=== PATIENT | female | born 1980 | race Caucasian/White ===

== ENCOUNTER 2017-03-03 02:15 | Emergency (ER) | payer MEDICAID ==
[~2017-03-03] VITALS: Ht 154.9 cm; Wt 108.0 kg
[2017-03-03 02:24] VITALS: BP 131/80
--- NOTE | 2017-03-03 02:35 | NUR ---
TO ER BED 7
--- NOTE | 2017-03-03 02:37 | NUR ---
Patient being evaluated by physician at bedside.
[2017-03-03] MEDS ORDERED: NITROGLYCERIN 0.4 MG TAB SL ONE (02:45)
[2017-03-03] MEDS ORDERED: ASPIRIN 325 MG TAB PO ONE (02:45)
[2017-03-03 02:59] LABS: BASOPHILS # (AUTO) 0.4 K/uL (0.00-0.22); BASOPHILS % (AUTO) 3.5 % (0.0-2.0); EOSINOPHILS # (AUTO) 0.4 K/uL (0-0.4); EOSINOPHILS % (AUTO) 3.5 % (0.0-4.0); HEMATOCRIT 42.4 % (36-48); HEMOGLOBIN 13.8 g/dL (12.0-16.0); LYMPHOCYTES # (AUTO) 3.3 K/uL (2.5-16.5); LYMPHOCYTES % (AUTO) 29.7 % (20.5-51.1); MEAN CORPUSCULAR HEMOGLOBIN 28 pg (27-31); MEAN CORPUSCULAR HGB CONC 33 g/dL (33-37); MEAN CORPUSCULAR VOLUME 87 fL (80-94); MONOCYTES # (AUTO) 0.5 K/uL (0.8-1.0); MONOCYTES % (AUTO) 4.1 % (1.7-9.3); NEUTROPHILS # (AUTO) 6.5 K/uL (1.8-7.7); NEUTROPHILS % (AUTO) 59.2 % (42.2-75.2); PLATELET COUNT (AUTO) 251 K/uL (140-450); RED BLOOD CELL COUNT(AUTO) 4.88 MIL/uL (4.20-5.40); RED CELL DISTRIBUTION WIDTH 14.2 % (11.6-13.7); WHITE BLOOD COUNT (AUTO) 11.1 K/uL (4.8-10.8)
[2017-03-03 03:10] LABS: ANION GAP 12.8 (8-16); CARBON DIOXIDE 25.3 mmol/L (21-32); CREATININE 0.6 mg/dL (0.6-1.3); POTASSIUM 4.1 mmol/L (3.5-5.1)
--- NOTE | 2017-03-03 03:11 | NUR ---
36 Y/O BIB W/C/O SOB, AND CHEST PAIN WITH LEFT SIDE NECK PAIN, STARTED AT 2300HOURS. VSS, ON CARDIAC ,ONITOR, SINUS RHYTHM. ER MD MADE AWARE.
[2017-03-03 03:13] LABS: APPEARANCE,URINE CLOUDY (CLEAR); BILIRUBIN,URINE NEGATIVE (NEGATIVE); BLOOD, URINE TRACE-I (NEGATIVE); COLOR,URINE YELLOW (YELLOW); LEUKOCYTE ESTERASE ,URINE 1+ (NEGATIVE); NITRITE, URINE NEGATIVE (NEGATIVE); PH,URINE 5.5 (5.0-9.0); UGLUCOSE NEGATIVE (NEGATIVE)
[2017-03-03 03:16] LABS: ALBUMIN 3.7 g/dL (3.4-5.0); TOTAL BILIRUBIN 0.4 mg/dL (0.0-1.0)
[2017-03-03 03:19] LABS: D-DIMER < 100 ng/ml (0-400)
[2017-03-03 03:27] LABS: RBC,URINE 0-5 (RARE) /HPF (0-5)
[2017-03-03] MEDS ORDERED: ACETAMINOPHEN 325 MG TAB PO ONE (04:50)
--- NOTE | 2017-03-03 04:55 | NUR ---
PT RESTING IN BED, VSS, AWATING FOR SECOND TROPONIN DRAW AT 0600 AM. NO S/S OF DISTRESS NOTED AT THE MOMENT.
--- NOTE | 2017-03-03 06:05 | NUR ---
LAB DRAWING SECOND TROPONIN AT BEDSIDE.
--- NOTE | 2017-03-03 06:18 | NUR ---
SECOND EKG DONE AT BEDSIDE. SINUS CORI, ER MADE AWARED.
[2017-03-03 06:41] VITALS: BP 97/63
--- NOTE | 2017-03-03 06:41 | NUR ---
Patient discharged with v/s stable. Written and verbal after care instructions given and explained. Patient verbalized understanding. Ambulatory with steady gait. All questions addressed prior to discharge. Advised to follow up with PMD.
== END 2017-03-03 06:41 | disposition home or self-care (01) ==
LOC: MED 02:15
DX: R07.9 Chest pain, unspecified (principal); E11.9 Type 2 diabetes mellitus without complications; I10 Essential (primary) hypertension
CPT/HCPCS: 36415; 71010; 80053; 81001; 81025; 83880; 84484; 85025; 85379; 85610; 85730; 87086; 93005; 99285

== ENCOUNTER 2017-06-05 15:40 | Emergency (ER) | payer MEDICAID ==
[~2017-06-05] VITALS: Ht 152.4 cm; Wt 106.6 kg
[2017-06-05 15:42] VITALS: BP 135/79
--- NOTE | 2017-06-05 15:54 | NUR ---
Patient to bed 07.
--- NOTE | 2017-06-05 17:04 | NUR ---
Patient being evaluated by Dr. Guthrie at bedside.
[2017-06-05] MEDS ORDERED: DICYCLOMINE HCL LIQUID 20 MG, ALUMINUM HYD/MAG/SIMETHICONE 30 ML, LIDOCAINE VISCOUS 2% ... PO ONE ×3 (17:05)
[2017-06-05 17:22] VITALS: BP 102/54
--- NOTE | 2017-06-05 17:22 | NUR ---
Patient discharged with v/s stable. Written and verbal after care instructions given and explained. Patient alert, oriented and verbalized understanding of instructions. Ambulatory with steady gait. All questions addressed prior to discharge. ID band removed. Patient advised to follow up with PMD. Rx of Zofran 8mg, Cipro 500mg, and Imodium A-D 2mg given. Patient educated on indication of medication including possible reaction and side effects. Opportunity to ask questions provided and answered.
== END 2017-06-05 17:22 | disposition home or self-care (01) ==
LOC: MED 15:40
DX: N39.0 Urinary tract infection, site not specified (principal); R10.13 Epigastric pain; E11.9 Type 2 diabetes mellitus without complications; I10 Essential (primary) hypertension
CPT/HCPCS: 81002; 81025; 99283

== ENCOUNTER 2018-05-03 23:40 | Emergency (ER) | payer MEDICAID ==
[~2018-05-03] VITALS: Ht 157.5 cm; Wt 112.5 kg
[2018-05-03 23:52] VITALS: BP 119/86
[2018-05-03 23:55] VITALS: BP 119/86
== END 2018-05-04 00:15 | disposition left against medical advice (07) ==
LOC: MED 23:40
DX: R06.00 Dyspnea, unspecified (principal); Z53.21 Procedure and treatment not carried out due to patient leaving prior to being seen by health care provider

== ENCOUNTER 2018-08-02 00:40 | Emergency (ER) | payer MEDICAID ==
[~2018-08-02] VITALS: Ht 149.9 cm; Wt 136.1 kg
--- NOTE | 2018-08-02 00:47 | NUR ---
pt ambulated to triage accompanied by family.
--- NOTE | 2018-08-02 00:50 | NUR ---
Pt ambulated to bed 4.
--- NOTE | 2018-08-02 00:54 | NUR ---
EKG PERFORMED AT BEDSIDE.
[2018-08-02] MEDS ORDERED: ASPIRIN 81 MG TAB.CHEW PO ONE (01:00)
[2018-08-02] MEDS ORDERED: DICYCLOMINE HCL LIQUID 20 MG, ALUMINUM HYD/MAG/SIMETHICONE 30 ML, LIDOCAINE VISCOUS 2% ... PO ONE ×3 (01:00)
--- NOTE | 2018-08-02 01:00 | NUR ---
PT IS A 38 Y/O FEMALE WHO PRESENTS TO THE ED C/O CHEST PAIN. PT STATES THAT IT IS A PRESSURE TYPE PAIN THAT GOES UP HER BODY. PT REPORTS 7/10 ACHING CHEST PAIN THAT DOES NOT RADIATE, ALSO C/O BODY PAIN AND HEADACHE. PT DENIES COUGH, REPORTS SOB/DYSPNEA, N/V/D. PT AWAKE AND ALERT, RR EVEN/UNLABORED. PT REPOSITIONED FOR COMFORT, BED IN LOWEST POSITION. ER MD DR. PADILLA NOTIFIED. WILL CONTINUE TO MONITOR.
[2018-08-02 01:18] LABS: BASOPHILS # (AUTO) 0.2 K/uL (0.00-0.22); BASOPHILS % (AUTO) 1.2 % (0.0-2.0); EOSINOPHILS # (AUTO) 0.3 K/uL (0-0.4); EOSINOPHILS % (AUTO) 2.5 % (0.0-4.0); LYMPHOCYTES # (AUTO) 2.4 K/uL (2.5-16.5); LYMPHOCYTES % (AUTO) 18.2 % (20.5-51.1); MEAN CORPUSCULAR HEMOGLOBIN 29 pg (27-31); MEAN CORPUSCULAR HGB CONC 32 g/dL (33-37); MEAN CORPUSCULAR VOLUME 88.3 fL (80-94); MONOCYTES # (AUTO) 0.7 K/uL (0.8-1.0); MONOCYTES % (AUTO) 5.1 % (1.7-9.3); NEUTROPHILS # (AUTO) 9.6 K/uL (1.8-7.7); PLATELET COUNT (AUTO) 246 K/uL (140-450); RED BLOOD CELL COUNT(AUTO) 4.87 MIL/uL (4.20-5.40); RED CELL DISTRIBUTION WIDTH 14.6 % (11.6-13.7); WHITE BLOOD COUNT (AUTO) 13.1 K/uL (4.8-10.8)
[2018-08-02] MEDS ORDERED: ASPIRIN 81 MG TAB.CHEW ONE (01:18)
[2018-08-02 01:24] LABS: ANION GAP 9.4 (8-16); CARBON DIOXIDE 30.2 mmol/L (21-32); CREATININE 0.8 mg/dL (0.6-1.3); POTASSIUM 3.6 mmol/L (3.5-5.1)
[2018-08-02 01:30] LABS: ALBUMIN 3.5 g/dL (3.4-5.0); TOTAL BILIRUBIN 0.3 mg/dL (0.0-1.0)
[2018-08-02 01:34] LABS: APPEARANCE,URINE CLEAR (CLEAR); BILIRUBIN,URINE NEGATIVE (NEGATIVE); BLOOD, URINE NEGATIVE (NEGATIVE); COLOR,URINE YELLOW (YELLOW); LEUKOCYTE ESTERASE ,URINE NEGATIVE (NEGATIVE); NITRITE, URINE NEGATIVE (NEGATIVE); UGLUCOSE NEGATIVE (NEGATIVE)
[2018-08-02] MEDS ORDERED: MORPHINE SULFATE 4 MG/ML SYR IM ONE (01:40)
[2018-08-02 02:27] VITALS: BP 135/77
== END 2018-08-02 02:27 | disposition home or self-care (01) ==
LOC: MED 00:40
DX: R07.89 Other chest pain (principal); R51 Headache; E11.9 Type 2 diabetes mellitus without complications; I10 Essential (primary) hypertension; E78.00 Pure hypercholesterolemia, unspecified; Z98.51 Tubal ligation status
CPT/HCPCS: 36415; 71045; 80053; 81003; 81025; 82948; 84484; 85025; 93005; 96372; 99284; J2270; Q0092

== ENCOUNTER 2019-01-15 02:51 | Emergency (ER) | payer MEDICAID ==
[~2019-01-15] VITALS: Ht 157.5 cm; Wt 121.8 kg
[2019-01-15 02:55] VITALS: BP 143/85
--- NOTE | 2019-01-15 03:00 | NUR ---
38/F CC: GENERALIZED BODY RASHES. DENIES HX DENIES RX. NO NEW FOODS OR SOAPS IMPLEMENTED. NO SIGNS OF ACUTE DISTRESS AT THIS TIME. FOLLOWS COMMANDS ABLE TO VERBALIZE NEEDS. BED IN LOWEST POSITION. WILL CONTINUE TO MONITOR
--- NOTE | 2019-01-15 03:08 | NUR ---
DR. GONZALEZ AT BEDSIDE AT THIS TIME.
[2019-01-15] MEDS ORDERED: diphenhydrAMINE 50 MG/ML VIAL IM ONE (03:10)
[2019-01-15] MEDS ORDERED: methylPREDNISolone SS 125 MG/2 ML VIAL IM ONE (03:10)
[2019-01-15 03:31] VITALS: BP 143/85
--- NOTE | 2019-01-15 03:32 | NUR ---
Patient discharged with v/s stable. Written and verbal after care instructions given and explained. Patient alert, oriented and verbalized understanding of instructions. Ambulatory with steady gait. All questions addressed prior to discharge. ID band removed. Patient advised to follow up with PMD. Rx of BENADRYL 25MG, PREDNISONE 50MG given. Patient educated on indication of medication including possible reaction and side effects. Opportunity to ask questions provided and answered.
== END 2019-01-15 03:32 | disposition home or self-care (01) ==
LOC: MED 02:51
DX: L23.9 Allergic contact dermatitis, unspecified cause (principal); I10 Essential (primary) hypertension; E11.9 Type 2 diabetes mellitus without complications
CPT/HCPCS: 96372; 99283; J1200; J2930

== ENCOUNTER 2019-01-17 01:42 | Emergency (ER) | payer MEDICAID ==
[~2019-01-17] VITALS: Ht 154.9 cm; Wt 131.5 kg
[2019-01-17 01:48] VITALS: BP 132/89
--- NOTE | 2019-01-17 02:13 | NUR ---
PT AMBULATED TO BED 5
--- NOTE | 2019-01-17 02:40 | NUR ---
PT CAME TO ER C/O OF RASH ALL OVER BODY. PT CAME TO ER 01/15/19 AND RECEIVED RX FOR PREDNISONE 10MG TAB AND BANOPHEN 25 MG CAPSULE. PER PT, MEDICATION PROVIDES A LITTLE BIT OF RELEIF, BUT THEN THE ITCHING COMES BACK. MED HX: DM, HIGH CHOLESTEROL, ARTHRITIS, AND HTN. SAFETY MEASURES IN PLACE. WAITING FOR ERMD TO EVALUTATE PT.
[2019-01-17 03:35] VITALS: BP 132/89
--- NOTE | 2019-01-17 03:38 | NUR ---
Patient discharged with v/s stable. Written and verbal after care instructions given and explained regarding rash. Patient alert, oriented and verbalized understanding of instructions. Ambulatory with steady gait. All questions addressed prior to discharge. ID band removed. Rx of PREDNISONE AND BENADRYL WAS given. Patient educated on indication of medication including possible reaction and side effects. Opportunity to ask questions provided and answered.
== END 2019-01-17 03:35 | disposition home or self-care (01) ==
LOC: MED 01:42
DX: R21 Rash and other nonspecific skin eruption (principal); E11.9 Type 2 diabetes mellitus without complications; I10 Essential (primary) hypertension; Z98.890 Other specified postprocedural states
CPT/HCPCS: 99283

== ENCOUNTER 2023-12-20 12:17 | Inpatient (IN) | payer OTHER ==
[~2023-12-20] VITALS: Ht 154.9 cm; Wt 90.7 kg
[2023-12-20 12:25] VITALS: BP 102/72; PULSE 131; RESP 19; TEMP 98.2; O2SAT 96
[2023-12-20] MEDS: NACL 0.9% 1,000 ML IV ONE ×2 (13:06→14:30)
[2023-12-20 13:07] LABS: BASOPHILS # (AUTO) 0.1 K/uL (0.00-0.22); BASOPHILS % (AUTO) 0.8 % (0.0-2.0); EOSINOPHILS # (AUTO) 0.2 K/uL (0-0.4); HEMATOCRIT 39.2 % (36-48); HEMOGLOBIN 12.6 g/dL (12.0-16.0); LYMPHOCYTES # (AUTO) 1.9 K/uL (2.5-16.5); LYMPHOCYTES % (AUTO) 21.2 % (20.5-51.1); MEAN CORPUSCULAR HEMOGLOBIN 29 pg (27-31); MEAN CORPUSCULAR HGB CONC 32 g/dL (33-37); MEAN CORPUSCULAR VOLUME 89.5 fL (80-94); MONOCYTES # (AUTO) 0.8 K/uL (0.8-1.0); MONOCYTES % (AUTO) 8.5 % (1.7-9.3); NEUTROPHILS # (AUTO) 6.1 K/uL (1.8-7.7); NEUTROPHILS % (AUTO) 67.5 % (42.2-75.2); PLATELET COUNT (AUTO) 197 K/uL (140-450); RED BLOOD CELL COUNT(AUTO) 4.38 MIL/uL (4.20-5.40); RED CELL DISTRIBUTION WIDTH 17.5 % (11.6-13.7)
[2023-12-20] MEDS: MORPHINE SULFATE 4 MG/ML SYR IVP ONE ×2 (13:21→16:51)
[2023-12-20 13:33] LABS: INR 0.94 (0.8-1.2); PARTIAL THROMBOPLASTIN TIME 26.5 secs (22-35.6); PROTHROMBIN TIME 9.9 secs (10.8-13.4)
[2023-12-20 14:15] LABS: ALBUMIN 2.6 g/dL (3.4-5.0); ANION GAP 17.3 (8-16); CARBON DIOXIDE 21.7 mmol/L (21-32); CREATININE 0.8 mg/dL (0.6-1.3); TOTAL BILIRUBIN 0.5 mg/dL (0.0-1.0)
[2023-12-20] MEDS: INSULIN REGULAR, HUMAN 100 UNIT/ML VIAL SUBQ ONE (14:34)
[2023-12-20] MEDS ORDERED: KCL 20 MEQ IN 100 mL PREMIX 200 ML IV PRN (17:45)
[2023-12-20] MEDS ORDERED: ACETAMINOPHEN 325 MG TAB PO PRN (17:45)
[2023-12-20] MEDS ORDERED: POTASSIUM CHLORIDE 10 MEQ TABER PO PRN (17:45)
[2023-12-20] MEDS ORDERED: MAG SULF 2000 MG/WATER PREMIX 50 ML IV PRN (17:45)
[2023-12-20] MEDS ORDERED: hePARIN / DEXT 5% PREMIX 250 ML IV SCH (17:50)
[2023-12-20] MEDS ORDERED: HEPARIN PER PHARMACY MC PRN (17:50)
[2023-12-20] MEDS ORDERED: LACT1CAP92 PO (20:08)
[2023-12-20] MEDS ORDERED: ACET-8211 PO (20:08)
[2023-12-20] MEDS ORDERED: ALLO100T21 PO (20:08)
[2023-12-20] MEDS ORDERED: DOCU-299 PO (20:10)
[2023-12-20] MEDS ORDERED: [UNRECOGNIZED DRUG - CODE] PO (20:10)
[2023-12-20] MEDS ORDERED: GABA100C PO (20:11)
[2023-12-20] MEDS ORDERED: DULA1.5S SC (20:11)
[2023-12-20] MEDS ORDERED: SYN.1 PO (20:13)
[2023-12-20] MEDS ORDERED: APID SUBQ (20:13)
[2023-12-20] MEDS ORDERED: HYDR-5080 PO (20:13)
[2023-12-20] MEDS ORDERED: HUM SUBQ (20:13)
[2023-12-20] MEDS: hePARIN / DEXT 5% PREMIX 250 ML IV SCH (20:14)
[2023-12-20] MEDS: MORPHINE SULFATE 4 MG/ML SYR IVP PRN (21:06)
[2023-12-20] MEDS: ONDANSETRON 4 MG/2 ML VIAL IVP PRN (21:09)
[2023-12-20 22:15] VITALS: BP 129/80; PULSE 120; RESP 20; RESP 21; TEMP 97.3; O2SAT 100
[2023-12-20 22:19] VITALS: PULSE 122
[2023-12-21] VITALS (7 sets, daily range): BP systolic 112–146; BP diastolic 67–82; PULSE 88–129; RESP 18–20; TEMP 97.2–98.2; O2SAT 95–100
[2023-12-21 02:46] LABS: INR 0.91 (0.8-1.2); PARTIAL THROMBOPLASTIN TIME 27.7 secs (22-35.6); PROTHROMBIN TIME 9.6 secs (10.8-13.4)
[2023-12-21] MEDS: HYDROcodone/APAP 5/325 MG 1 TAB TAB PO PRN (05:09)
[2023-12-21 05:49] LABS: BASOPHILS % (AUTO) 0.5 % (0.0-2.0); EOSINOPHILS # (AUTO) 0.2 K/uL (0-0.4); EOSINOPHILS % (AUTO) 2.9 % (0.0-4.0); HEMATOCRIT 36.9 % (36-48); HEMOGLOBIN 11.9 g/dL (12.0-16.0); LYMPHOCYTES # (AUTO) 1.5 K/uL (2.5-16.5); LYMPHOCYTES % (AUTO) 17.3 % (20.5-51.1); MEAN CORPUSCULAR HEMOGLOBIN 29 pg (27-31); MEAN CORPUSCULAR HGB CONC 32 g/dL (33-37); MEAN CORPUSCULAR VOLUME 89.5 fL (80-94); MONOCYTES # (AUTO) 0.7 K/uL (0.8-1.0); MONOCYTES % (AUTO) 8.4 % (1.7-9.3); NEUTROPHILS % (AUTO) 70.9 % (42.2-75.2); PLATELET COUNT (AUTO) 209 K/uL (140-450); RED BLOOD CELL COUNT(AUTO) 4.12 MIL/uL (4.20-5.40); WHITE BLOOD COUNT (AUTO) 8.5 K/uL (4.8-10.8)
[2023-12-21 06:35] LABS: ALBUMIN 2.4 g/dL (3.4-5.0); ANION GAP 15.9 (8-16); CALCIUM 8.7 mg/dL (8.5-10.1); CARBON DIOXIDE 23.2 mmol/L (21-32); CREATININE 0.5 mg/dL (0.6-1.3); MAGNESIUM 1.8 mg/dL (1.8-2.4); POTASSIUM 4.1 mmol/L (3.5-5.1); TOTAL BILIRUBIN 0.4 mg/dL (0.0-1.0); TOTAL PROTEIN, SERUM 6.9 g/dL (6.4-8.2)
[2023-12-21] MEDS: DOCUSATE SODIUM 100 MG GELCAP PO SCH (09:47)
[2023-12-21] MEDS ORDERED: SKINTEGRITY HYDROGEL TP PRN (12:35)
[2023-12-21] MEDS: APIXABAN 2.5 MG TAB PO SCH (21:04)
[2023-12-21] MEDS: MEDS-TO-BEDS MC SCH (21:04)
[2023-12-22] VITALS (7 sets, daily range): BP systolic 115–150; BP diastolic 76–116; PULSE 81–116; RESP 16–18; TEMP 96.6–98.6; O2SAT 98–99
[2023-12-22 05:37] LABS: BASOPHILS % (AUTO) 0.6 % (0.0-2.0); EOSINOPHILS # (AUTO) 0.1 K/uL (0-0.4); EOSINOPHILS % (AUTO) 1.5 % (0.0-4.0); HEMOGLOBIN 11.3 g/dL (12.0-16.0); LYMPHOCYTES # (AUTO) 1.6 K/uL (2.5-16.5); LYMPHOCYTES % (AUTO) 19.3 % (20.5-51.1); MEAN CORPUSCULAR HEMOGLOBIN 29 pg (27-31); MEAN CORPUSCULAR HGB CONC 32 g/dL (33-37); MONOCYTES # (AUTO) 0.7 K/uL (0.8-1.0); MONOCYTES % (AUTO) 8.7 % (1.7-9.3); NEUTROPHILS # (AUTO) 5.6 K/uL (1.8-7.7); NEUTROPHILS % (AUTO) 69.9 % (42.2-75.2); PLATELET COUNT (AUTO) 235 K/uL (140-450); RED BLOOD CELL COUNT(AUTO) 3.94 MIL/uL (4.20-5.40); RED CELL DISTRIBUTION WIDTH 17.5 % (11.6-13.7)
[2023-12-22 06:16] LABS: ALBUMIN 2.3 g/dL (3.4-5.0); ANION GAP 11.9 (8-16); CALCIUM 8.9 mg/dL (8.5-10.1); CARBON DIOXIDE 27.4 mmol/L (21-32); CREATININE 0.5 mg/dL (0.6-1.3); MAGNESIUM 1.8 mg/dL (1.8-2.4); POTASSIUM 4.3 mmol/L (3.5-5.1); TOTAL BILIRUBIN 0.5 mg/dL (0.0-1.0); TOTAL PROTEIN, SERUM 6.8 g/dL (6.4-8.2)
[2023-12-22] MEDS: SKINTEGRITY HYDROGEL TP SCH (08:52)
[2023-12-22] MEDS ORDERED: APIX5TAB PO (13:36)
[2023-12-22] MEDS ORDERED: DEXTROSE 50% 50 ML SYR IVP PRN (18:55)
[2023-12-22] MEDS: INSULIN LISPRO SLIDING SCALE 100 UNITS/ML VIAL SUBQ PRN (18:59)
[2023-12-22] MEDS: BLOOD GLUCOSE MONITORING 1 DEV DEV FS SCH (21:28)
[2023-12-23] VITALS (7 sets, daily range): BP systolic 122–136; BP diastolic 78–93; PULSE 95–109; RESP 16–18; TEMP 97–97.9; O2SAT 95–99
[2023-12-23 07:13] LABS: HEMATOCRIT 32.9 % (36-48); HEMOGLOBIN 10.5 g/dL (12.0-16.0); MEAN CORPUSCULAR HEMOGLOBIN 28 pg (27-31); MEAN CORPUSCULAR HGB CONC 32 g/dL (33-37); MEAN CORPUSCULAR VOLUME 88.4 fL (80-94); PLATELET COUNT (AUTO) 262 K/uL (140-450); RED BLOOD CELL COUNT(AUTO) 3.73 MIL/uL (4.20-5.40); RED CELL DISTRIBUTION WIDTH 17.4 % (11.6-13.7); WHITE BLOOD COUNT (AUTO) 6.5 K/uL (4.8-10.8)
[2023-12-23 08:12] LABS: ALBUMIN 2.2 g/dL (3.4-5.0); ANION GAP 12.3 (8-16); CALCIUM 8.8 mg/dL (8.5-10.1); CREATININE 0.4 mg/dL (0.6-1.3); MAGNESIUM 1.6 mg/dL (1.8-2.4); POTASSIUM 4.3 mmol/L (3.5-5.1); TOTAL BILIRUBIN 0.3 mg/dL (0.0-1.0); TOTAL PROTEIN, SERUM 6.7 g/dL (6.4-8.2)
[2023-12-23 08:25] LABS: EOSINOPHILS % (MANUAL) 2 % (0-4); MONOCYTES % (MANUAL) 10 % (5-12)
[2023-12-23 08:26] LABS: LYMPHOCYTES % (MANUAL) 23 % (20-46)
[2023-12-23] MEDS: MAGNESIUM OXIDE 400 MG TAB PO PRN (18:43)
== END 2023-12-23 19:50 | DRG 197 ==
LOC: MED 12:17 → MTU 17:48
PROVIDERS: ADMIT Hospitalist; ATTEND Hospitalist
DX: I82.413 Acute embolism and thrombosis of femoral vein, bilateral (principal); I26.99 Other pulmonary embolism without acute cor pulmonale; E43 Unspecified severe protein-calorie malnutrition; J96.11 Chronic respiratory failure with hypoxia; R65.10 Systemic inflammatory response syndrome (SIRS) of non-infectious origin without acute organ dysfunction; E87.1 Hypo-osmolality and hyponatremia; E66.9 Obesity, unspecified; Z68.37 Body mass index [BMI] 37.0-37.9, adult; I10 Essential (primary) hypertension; E11.9 Type 2 diabetes mellitus without complications
CPT/HCPCS: 36415; 71275; 80053; 82009; 82948; 83735; 85025; 85610; 85730; 87070; 87075; 87081; 87186; 87205; 93005; 93971; 96361; 96372; 96374; 96375; 97110; 97163-GP; 97530; 99291; A6248; J1644; J1815; J2270; J2405; Q0092; Q9967